=== PATIENT | female | born 1965 | race Caucasian/White ===

== ENCOUNTER 2017-02-10 11:46 | Emergency (ER) | payer MEDICAID ==
[~2017-02-10] VITALS: Ht 167.6 cm; Wt 81.2 kg
[~2017-02-10 11:46] MED LIST: LISI10TA11 PO; METF500T2 PO; PAX20 PO
[2017-02-10 11:58] VITALS: BP 102/67
[2017-02-10 12:14] LABS: BILIRUBIN,URINE NEGATIVE (NEGATIVE); BLOOD, URINE TRACE-I (NEGATIVE); COLOR,URINE YELLOW (YELLOW); NITRITE, URINE NEGATIVE (NEGATIVE); UGLUCOSE NEGATIVE (NEGATIVE)
[2017-02-10 13:23] LABS: APPEARANCE,URINE SLIGHTLY HAZY (CLEAR); LEUKOCYTE ESTERASE ,URINE 1+ (NEGATIVE); RBC,URINE 0-5 (RARE) /HPF (0-5)
--- NOTE | 2017-02-10 16:19 | NUR ---
PATIENT LEFT WITHOUT BEING SEEN BY DR. TREVIZO. NO FURTHER CARE PROVIDED FOR PATIENT.
== END 2017-02-10 16:19 | disposition left against medical advice (07) ==
LOC: MED 11:46
DX: R10.31 Right lower quadrant pain (principal); Z53.21 Procedure and treatment not carried out due to patient leaving prior to being seen by health care provider
CPT/HCPCS: 81001; 81025; 87086; 99281

== ENCOUNTER 2017-08-05 00:05 | Emergency (ER) | payer SELFPAY ==
[~2017-08-05] VITALS: Ht 162.6 cm; Wt 80.3 kg
[2017-08-05 00:14] VITALS: BP 155/85
--- NOTE | 2017-08-05 00:18 | NUR ---
TO BED # 9 AMB , REPORT GIVEN TO CHUCK ARAGON
--- NOTE | 2017-08-05 00:30 | NUR ---
51 Y/O F W/C/O HIGH BP , DIZZINESS, EPIGASTRIC PAIN, NAUSEA, FOR 3-4 DAYS GETTING WORSE LAST NIGHT. PT ON MONITOR, NSR, BP 138/69. ER MD MADE AWARE.
--- NOTE | 2017-08-05 00:53 | NUR ---
Dr. Ratliff evaluating patient
[2017-08-05] MEDS ORDERED: MECLIZINE 25 MG TAB PO ONE (01:00)
[2017-08-05] MEDS ORDERED: METOCLOPRAMIDE 10 MG/2 ML INJ VIAL IVP ONE ×2 (01:00→02:35)
[2017-08-05] MEDS ORDERED: NACL 0.9% 1,000 ML IV ONE (01:00)
[2017-08-05 01:10] LABS: BASOPHILS % (AUTO) 0.4 % (0.0-2.0); EOSINOPHILS # (AUTO) 0.2 K/uL (0-0.4); EOSINOPHILS % (AUTO) 2.3 % (0.0-4.0); HEMATOCRIT 35.3 % (36-48); HEMOGLOBIN 11.9 g/dL (12.0-16.0); LYMPHOCYTES # (AUTO) 2.5 K/uL (2.5-16.5); LYMPHOCYTES % (AUTO) 27.8 % (20.5-51.1); MEAN CORPUSCULAR HEMOGLOBIN 29 pg (27-31); MEAN CORPUSCULAR HGB CONC 34 g/dL (33-37); MEAN CORPUSCULAR VOLUME 84.8 fL (80-94); MONOCYTES # (AUTO) 0.7 K/uL (0.8-1.0); MONOCYTES % (AUTO) 7.9 % (1.7-9.3); NEUTROPHILS # (AUTO) 5.6 K/uL (1.8-7.7); NEUTROPHILS % (AUTO) 61.6 % (42.2-75.2); PLATELET COUNT (AUTO) 268 K/uL (140-450); RED BLOOD CELL COUNT(AUTO) 4.16 MIL/uL (4.20-5.40); RED CELL DISTRIBUTION WIDTH 14.3 % (11.6-13.7); WHITE BLOOD COUNT (AUTO) 9.2 K/uL (4.8-10.8)
[2017-08-05 01:20] LABS: ANION GAP 11.2 (8-16); CARBON DIOXIDE 28.5 mmol/L (21-32); CREATININE 0.7 mg/dL (0.6-1.3); POTASSIUM 3.7 mmol/L (3.5-5.1)
[2017-08-05 01:26] LABS: ALBUMIN 3.3 g/dL (3.4-5.0); TOTAL BILIRUBIN 0.2 mg/dL (0.0-1.0)
[2017-08-05 01:47] LABS: APPEARANCE,URINE SL CLOUDY (CLEAR); BILIRUBIN,URINE NEGATIVE (NEGATIVE); BLOOD, URINE NEGATIVE (NEGATIVE); COLOR,URINE YELLOW (YELLOW); LEUKOCYTE ESTERASE ,URINE NEGATIVE (NEGATIVE); NITRITE, URINE NEGATIVE (NEGATIVE); PH,URINE 7.5 (5.0-9.0); UGLUCOSE NEGATIVE (NEGATIVE)
--- NOTE | 2017-08-05 01:50 | NUR ---
PT TAKEN TO CT
--- NOTE | 2017-08-05 02:04 | NUR ---
PT RETURN FROM CT
[2017-08-05] MEDS ORDERED: PROCHLORPERAZINE 10 MG/2 ML VIAL IVP ONE (02:35)
--- NOTE | 2017-08-05 02:50 | NUR ---
PT RESTING IN BED, VSS. WILL CONT TO MONITOR.
[2017-08-05] MEDS ORDERED: LACTULOSE 20 GM/30 ML UDC PO ONE (03:00)
[2017-08-05 03:30] VITALS: BP 127/71
--- NOTE | 2017-08-05 03:30 | NUR ---
Patient discharged with v/s stable. Written and verbal after care instructions given and explained. Patient alert, oriented and verbalized understanding of instructions. Ambulatory with steady gait. All questions addressed prior to discharge. ID band removed. Patient advised to follow up with PMD. Rx of LACTULOSE, AND ZOFRAN given. Patient educated on indication of medication including possible reaction and side effects. Opportunity to ask questions provided and answered.
== END 2017-08-05 03:30 | disposition home or self-care (01) ==
LOC: MED 00:05
DX: D64.9 Anemia, unspecified (principal); R11.2 Nausea with vomiting, unspecified; K59.00 Constipation, unspecified; E11.9 Type 2 diabetes mellitus without complications; I10 Essential (primary) hypertension; Z79.899 Other long term (current) drug therapy
CPT/HCPCS: 36415; 74176; 80053; 81003; 85025; 96361; 96374; 96375; 99285; J0780; J2765; J7030; J8597

== ENCOUNTER 2021-08-23 17:16 | Emergency (ER) | payer OTHER ==
[~2021-08-23] VITALS: Ht 157.5 cm; Wt 78.0 kg
[~2021-08-23 17:16] MED LIST changes: +LISI-486 PO; -LISI10TA11 PO; +METF-1139 PO; -METF500T2 PO
[2021-08-23 17:49] VITALS: BP 114/67
--- NOTE | 2021-08-23 17:54 | NUR ---
PT TO LOBBY.
--- NOTE | 2021-08-23 18:06 | NUR ---
56 Y/O FEMALE C/O HEADACHE 8/10 RADIATING TO BACK OF HEAD X1DAY. PT ALSO C/O BODY RASH THROUGHOUT. DENIES FEVER/CHILLS. DENIES N/V/D. PMH: DM, HTN NKA
--- NOTE | 2021-08-23 18:25 | NUR ---
PT AMBULATED TO CHAIR B.
[2021-08-23 18:58] LABS: APPEARANCE,URINE CLEAR (CLEAR); BILIRUBIN,URINE NEGATIVE (NEGATIVE); BLOOD, URINE 1+ (NEGATIVE); COLOR,URINE YELLOW (YELLOW); LEUKOCYTE ESTERASE ,URINE 1+ (NEGATIVE); NITRITE, URINE NEGATIVE (NEGATIVE); PH,URINE 7.5 (5.0-9.0); UGLUCOSE NEGATIVE (NEGATIVE)
[2021-08-23 19:16] LABS: OTHER CASTS, URINE None Seen /LPF (None Seen); RBC,URINE 0-5 /HPF (0-5); WBC,URINE 0-5 /HPF (0-5)
[2021-08-23] MEDS ORDERED: KETOROLAC 60 MG/2 ML VIAL IM ONE (19:35)
[2021-08-23] MEDS: KETOROLAC 60 MG/2 ML VIAL IM ONE (19:39)
--- NOTE | 2021-08-23 19:40 | NUR ---
PT MEDICATED PER ORDERS.
[2021-08-23] MEDS ORDERED: PRED20TA5 PO (19:50)
[2021-08-23] MEDS ORDERED: IBUP-2213 PO (19:50)
[2021-08-23] MEDS ORDERED: ACET-8386 PO (19:50)
[2021-08-23] MEDS ORDERED: DIPH25TA53 PO (19:50)
[2021-08-23] MEDS ORDERED: CIPR500T4 PO (19:50)
--- NOTE | 2021-08-23 20:04 | NUR ---
Patient discharged with v/s stable. Written and verbal after care instructions given and explained. Patient alert, oriented and verbalized understanding of instructions. Ambulatory with steady gait. All questions addressed prior to discharge. ID band removed. Patient advised to follow up with PMD. Rx of NORCO,CIPRO, BENADRYL, MOTRIN, AND PREDNISONE given. Patient educated on indication of medication including possible reaction and side effects. Opportunity to ask questions provided and answered.
== END 2021-08-23 20:04 | disposition home or self-care (01) ==
LOC: MED 17:16
DX: N39.0 Urinary tract infection, site not specified (principal); R51.9 Headache, unspecified; R21 Rash and other nonspecific skin eruption; I10 Essential (primary) hypertension; E11.9 Type 2 diabetes mellitus without complications; Z79.4 Long term (current) use of insulin; Z79.899 Other long term (current) drug therapy
CPT/HCPCS: 70450; 81001; 87086; 96372; 99284; J1885

== ENCOUNTER 2022-02-13 17:03 | Emergency (ER) | payer OTHER ==
[~2022-02-13] VITALS: Ht 160 cm; Wt 78.5 kg
[~2022-02-13 17:03] MED LIST changes: +ACET-8905 PO; +CIPR500T4 PO; +DIPH25TA53 PO; +IBUP-2213 PO; +PRED20TA5 PO
[2022-02-13 17:14] VITALS: BP 121/71
--- NOTE | 2022-02-13 17:16 | NUR ---
PT AMBULATED TO LOBBY
[2022-02-13] MEDS ORDERED: KETOROLAC 30 MG/ML VIAL IM ONE (20:00)
[2022-02-13] MEDS ORDERED: HYDROcodone/APAP 5/325 MG 1 TAB TAB PO ONE (20:00)
[2022-02-13] MEDS ORDERED: LID5T TP (21:03)
[2022-02-13] MEDS ORDERED: IBUP-2213 PO (21:03)
[2022-02-13] MEDS ORDERED: ACET-8905 PO (21:03)
[2022-02-13 21:10] VITALS: BP 121/71
--- NOTE | 2022-02-13 21:10 | NUR ---
Patient discharged with v/s stable. Written and verbal after care instructions given and explained. Patient alert, oriented and verbalized understanding of instructions. Ambulatory with steady gait. All questions addressed prior to discharge. ID band removed. Patient advised to follow up with PMD. Rx of LIDODERM, IBUPROFEN given. Patient educated on indication of medication including possible reaction and side effects. Opportunity to ask questions provided and answered.
[2022-02-13 21:16] LABS: APPEARANCE,URINE CLEAR (CLEAR); BILIRUBIN,URINE NEGATIVE (NEGATIVE); BLOOD, URINE NEGATIVE (NEGATIVE); COLOR,URINE YELLOW (YELLOW); LEUKOCYTE ESTERASE ,URINE NEGATIVE (NEGATIVE); NITRITE, URINE NEGATIVE (NEGATIVE); UGLUCOSE NEGATIVE (NEGATIVE)
== END 2022-02-13 21:10 | disposition home or self-care (01) ==
LOC: MED 17:03
DX: M54.16 Radiculopathy, lumbar region (principal); I10 Essential (primary) hypertension; E11.9 Type 2 diabetes mellitus without complications; Z79.4 Long term (current) use of insulin; Z79.899 Other long term (current) drug therapy
CPT/HCPCS: 81003; 81025; 96372; 99283; J1885